=== PATIENT | male | born 1955 | race Caucasian/White ===

== ENCOUNTER 2019-06-17 05:33 | Observation (INO) | payer BC ==
[2019-06-17] MEDS ORDERED: Sodium Chloride 0.9% 1,000 ML IV ONE (05:42)
[2019-06-17] MEDS ORDERED: Ondansetron 4 MG/2 ML SDV IVPUSH ONE (05:42)
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
[2019-06-17] MEDS ORDERED: Alum Hydrox/Mag Hydrox/Simeth 15 ML, Metoclopramide 5 MG, Lidocaine 2% 5 ML PO ONE ×3 (06:02)
[2019-06-17] MEDS ORDERED: Iopamidol 755 Mg/ML 100 ML Bottle IVPUSH STA (06:04)
[2019-06-17 06:11] LABS: CARBON DIOXIDE,CO2 25.2 mmol/L (21.0-32.0); POTASSIUM,K 4.3 mmol/L (3.5-5.1)
--- NOTE | 2019-06-17 07:00 | CT ---
INDICATION: Abdominal pain TECHNIQUE: CT Abdomen and pelvis without i.v. contrast. Coronal and sagittal reformats were obtained. COMPARISON: None FINDINGS: Lower chest: Small nodular infiltrates are present in the medial left lower lobe where there is hyperlucency and a systemic feeding artery extending from the aorta. Liver: Unremarkable. Spleen: Unremarkable. Pancreas: Unremarkable. Gallbladder: Two calcified gallstones are present within the contracted gallbladder has mild gallbladder wall thickening. Kidney: Moderate atrophy of the right kidney is seen. There is a low-density lesion protruding into the left renal sinus in the lower pole measuring 1.4 cm. This is likely a parapelvic cyst but is incompletely assessed without intravenous contrast. Adrenal: There is a 2 cm left adrenal nodule present with average density of -4 HU. Bowel: Unremarkable. Moderate enlargement of the appendix is noted measuring 10 mm, with no secondary inflammatory changes seen. Vascular: Unremarkable. Lymph: Unremarkable. Peritoneum: Unremarkable. No pneumoperitoneum is seen. Trace pelvic ascites is present. Pelvis: Unremarkable. Soft tissue: Unremarkable. Bone: Unremarkable for age. IMPRESSIONS: 1. Small nodular infiltrates are present in the medial left lower lobe where there is hyperlucency and a systemic feeding artery extending from the aorta. 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 2. Two calcified gallstones are present within the contracted gallbladder that has mild gallbladder wall thickening. 3. Moderate enlargement of the appendix is noted measuring 10 mm, with no secondary inflammatory changes seen. Clinical correlation and followup recommended to distinguish between a normal ectatic variant or early stage appendicitis. 4. There is a 2 cm left adrenal nodule present with average density of -4 HU. This is likely a lipid rich adrenal adenoma. Correlation with patient`s history and laboratory data is recommended to determine the hormone activity level of this lesion. Dictated by Preston Suarez MD @ 06/17/2019 6:53:50 AM Please note that all CT scans at this facility use dose modulation, iterative reconstruction, and/or weight-based dosing when appropriate to reduce radiation dose to as low as reasonably achievable. Dictated by: Preston Suarez MD @ 06/17/2019 06:58:33 (Electronically Signed)
[2019-06-17] MEDS ORDERED: Piperacillin/Tazobactam 4.5 GM in Sodium Chloride 0.9% 100 ML IV ONE (07:24)
--- NOTE | 2019-06-17 09:21 | PCM.CONS ---
H&P History of Present Illness - General Date of Service: 06/17/19 Admit Problem/Dx: Admission Diagnosis/Problem Admission Diagnosis/Problem Abdominal pain Source of Information: Patient History Limitations: Reports: No Limitations - History of Present Illness Initial Comments - Free Text/Narative: Patient is a 63-year-old gentleman who presented to the emergency room earlier this morning complaining of significant abdominal pain. He is not able to localize the pain. He did describe it is primarily upper abdomen. No particular food intolerances. He has noted significant abdominal bloating intermittently for the last several weeks. He was given a trial of Prilosec which she does not think helped him. He denies any personal history of greasy food intolerance. He thinks his father had his gallbladder out. He is not sure if his mother had a cholecystectomy. He denies any change in the color of his stools or urine. His relates he has lost about 10 pounds in the last 6 -8 weeks as he is afraid to eat anything. Duration of Symptoms: Reports: Week(s):, Chronic, Colic, Recurring Location: Reports: Abdomen Quality: Reports: Pressure, Throbbing Severity: Moderate Improves with: Reports: None Worsens with: Reports: None Context: Reports: Sick Contact Associated Symptoms: Reports: Loss of Appetite. Denies: Confusion, Chest Pain, Cough, Fever/Chills, Headaches, Malaise, Nausea/Vomiting Abdomen Pain Score (Numeric/FACES): 8 - Related Data Allergies/Adverse Reactions: Allergies Allergy/AdvReac Type Severity Reaction Status Date / Time No Known Allergies Allergy Verified 06/17/19 05:44 Home Medications: Home Meds Aspirin 81 mg PO DAILY 06/17/19 [History] Lisinopril [Zestril] 10 mg PO DAILY 06/17/19 [History] Metoprolol Succinate 25 mg PO DAILY 06/17/19 [History] Omeprazole 40 mg PO DAILY 06/17/19 [History] atorvaSTATin [Lipitor] 40 mg PO DAILY 06/17/19 [History] Past Medical History HEENT History: Reports: Other (See Below) Other HEENT History: top and bottom dentures Cardiovascular History: Reports: High Cholesterol, Hypertension Respiratory History: Reports: None Gastrointestinal History: Reports: None Genitourinary History: Reports: None Musculoskeletal History: Reports: None Neurological History: Reports: None Psychiatric History: Reports: None Endocrine/Metabolic History: Reports: None Hematologic History: Reports: None Immunologic History: Reports: None Oncologic (Cancer) History: Reports: None Dermatologic History: Reports: None - Infectious Disease History Infectious Disease History: Reports: Chicken Pox - Past Surgical History Head Surgeries/Procedures: Reports: None Social & Family History - Tobacco Use Smoking Status *Q: Current Every Day Smoker Years of Tobacco use: 44 Packs/Tins Daily: 0.5 - Caffeine Use Caffeine Use: Reports: Soda - Recreational Drug Use Recreational Drug Use: No H&P Review of Systems - Review of Systems: Review Of Systems: See Below General: Reports: Decreased Appetite, Weight Loss. Denies: Fever, Chills, Malaise HEENT: Reports: No Symptoms Pulmonary: Denies: Shortness of Breath, Wheezing Cardiovascular: Reports: Blood Pressure Problem. Denies: Chest Pain, Palpitations, Dyspnea on Exertion, Lightheadedness, Syncope Gastrointestinal: Reports: Abdominal Pain, Decreased Appetite, Distension, Flatus. Denies: Black Stool, Bloody Stool, Constipation, Diarrhea, Difficulty Swallowing, Hematemesis, Hematochezia, Melena, Nausea, Stool Incontinence, Vomiting Genitourinary: Denies: Dysuria, Frequency, Burning, Pain, Urgency Musculoskeletal: Denies: Neck Pain, Shoulder Pain Psychiatric: Denies: Confusion, Depression, Mood Lability, Anxiety Neurological: Reports: No Symptoms Hematologic/Lymphatic: Reports: No Symptoms Immunologic: Reports: No Symptoms Exam - Exam Exam: See Below - Vital Signs Vital Signs: Last Vital Signs Temp 97.6 F 06/17/19 08:23 Pulse 84 06/17/19 08:23 Resp 18 06/17/19 08:23 BP 142/79 H 06/17/19 08:23 Pulse Ox 95 06/17/19 08:23 Weight: 182 lb 8.684 oz - Exam Quality Assessment: No: Supplemental Oxygen, Central Line/PICC, Urinary Catheter General: Alert, Oriented, Cooperative, Mild Distress HEENT: Conjunctiva Clear, Nares Patent, Normal Nasal Septum, Pupils Equal, Pupils Reactive. No: Scleral Icterus Neck: Supple, Trachea Midline, +2 Carotid Pulse wo Bruit, Full Range of Motion Lungs: Clear to Auscultation, Normal Respiratory Effort. No: Rales, Wheezing Cardiovascular: Regular Rate, Regular Rhythm, Normal S1, Normal S2. No: Bradycardia, Tachycardia, Systolic Murmur GI/Abdominal Exam: Normal Bowel Sounds, Soft, Non-Tender, No Organomegaly, No Distention, Other (Negative Lindquist's sign). No: Guarding, Rigid, Rebound (Male) Exam: No Hernia Rectal (Males) Exam: Deferred Extremities: Normal Range of Motion, No Pedal Edema, Normal Capillary Refill Peripheral Pulses: 4+: Posterior Tibial (L), Posterior Tibial (R), Dorsalis Pedis (L), Dorsalis Pedis (R) Skin: Warm, Dry, Intact Neurological: Cranial Nerves Intact, Normal Speech, Normal Tone Psychiatric: Alert, Normal Affect, Normal Mood. No: Anxious, Depressed - Patient Data Lab Results Last 24 hrs: Laboratory Results - last 24 hr 06/17/19 06/17/19 06/17/19 Range/Units 05:45 05:45 05:45 WBC 18.09 H (4.0-11.0) K/uL RBC 4.04 L (4.50-5.90) M/uL Hgb 12.6 L (13.0-17.0) g/dL Hct 34.8 L (38.0-50.0) % MCV 86.1 (80.0-98.0) fL MCH 31.2 (27.0-32.0) pg MCHC 36.2 (31.0-37.0) g/dL RDW Std Deviation 39.3 (28.0-62.0) fl RDW Coeff of Annie 12 (11.0-15.0) % Plt Count 290 (150-400) K/uL MPV 9.50 (7.40-12.00) fL Neut % (Auto) 82.8 H (48.0-80.0) % Lymph % (Auto) 9.1 L (16.0-40.0) % [place] % (Auto) 6.5 (0.0-15.0) % Eos % (Auto) 1.4 (0.0-7.0) % Baso % (Auto) 0.2 (0.0-1.5) % Neut # (Auto) 15.0 H (1.4-5.7) K/uL Lymph # (Auto) 1.7 (0.6-2.4) K/uL [place] # (Auto) 1.2 H (0.0-0.8) K/uL Eos # (Auto) 0.3 (0.0-0.7) K/uL Baso # (Auto) 0.0 (0.0-0.1) K/uL Nucleated RBC % 0.0 /100WBC Nucleated RBCs # 0 K/uL Lactate 1.4 (0.20-2.00) mmol/L Sodium 129 L (136-148) mmol/L Potassium 4.3 (3.5-5.1) mmol/L Chloride 92 L (98-107) mmol/L Carbon Dioxide 25.2 (21.0-32.0) mmol/L BUN 27 H (7.0-18.0) mg/dL Creatinine 2.0 H (0.8-1.3) mg/dL Est Cr Clr Drug Dosing 37.05 mL/min Estimated GFR (MDRD) 34.0 ml/min Glucose 128 H (74-106) mg/dL Calcium 9.7 (8.5-10.1) mg/dL Total Bilirubin 0.5 (0.2-1.0) mg/dL AST 23 (15-37) IU/L ALT 29 (14-63) IU/L Alkaline Phosphatase 99 (46-116) U/L Total Protein 7.6 (6.4-8.2) g/dL Albumin 4.3 (3.4-5.0) g/dL Globulin 3.3 (2.6-4.0) g/dL Albumin/Globulin Ratio 1.3 (0.9-1.6) Lipase 199 (73-393) U/L Urine Color Urine Appearance Urine pH (5.0-8.0) Ur Specific [place] (1.001-1.035) Urine Protein (NEGATIVE) mg/dL Urine Glucose (UA) (NEGATIVE) mg/dL Urine Ketones (NEGATIVE) mg/dL Urine Occult Blood (NEGATIVE) Urine Nitrite (NEGATIVE) Urine Bilirubin (NEGATIVE) Urine Urobilinogen (<2.0) EU/dL Ur Leukocyte Esterase (NEGATIVE) U Hyaline Cast (Auto) (0-2/LPF) Urine RBC (0-2/HPF) Urine WBC (0-5/HPF) Ur Squamous Epith Cells Urine Bacteria (NEGATIVE) Urine Mucus (NONE-MOD) 06/17/19 Range/Units 06:28 WBC (4.0-11.0) K/uL RBC (4.50-5.90) M/uL Hgb (13.0-17.0) g/dL Hct (38.0-50.0) % MCV (80.0-98.0) fL MCH (27.0-32.0) pg MCHC (31.0-37.0) g/dL RDW Std Deviation (28.0-62.0) fl RDW Coeff of Annie (11.0-15.0) % Plt Count (150-400) K/uL MPV (7.40-12.00) fL Neut % (Auto) (48.0-80.0) % Lymph % (Auto) (16.0-40.0) % [place] % (Auto) (0.0-15.0) % Eos % (Auto) (0.0-7.0) % Baso % (Auto) (0.0-1.5) % Neut # (Auto) (1.4-5.7) K/uL Lymph # (Auto) (0.6-2.4) K/uL [place] # (Auto) (0.0-0.8) K/uL Eos # (Auto) (0.0-0.7) K/uL Baso # (Auto) (0.0-0.1) K/uL Nucleated RBC % /100WBC Nucleated RBCs # K/uL Lactate (0.20-2.00) mmol/L Sodium (136-148) mmol/L Potassium (3.5-5.1) mmol/L Chloride (98-107) mmol/L Carbon Dioxide (21.0-32.0) mmol/L BUN (7.0-18.0) mg/dL Creatinine (0.8-1.3) mg/dL Est Cr Clr Drug Dosing mL/min Estimated GFR (MDRD) ml/min Glucose (74-106) mg/dL Calcium (8.5-10.1) mg/dL Total Bilirubin (0.2-1.0) mg/dL AST (15-37) IU/L ALT (14-63) IU/L Alkaline Phosphatase (46-116) U/L Total Protein (6.4-8.2) g/dL Albumin (3.4-5.0) g/dL Globulin (2.6-4.0) g/dL Albumin/Globulin Ratio (0.9-1.6) Lipase (73-393) U/L Urine Color YELLOW Urine Appearance CLEAR Urine pH 7.0 (5.0-8.0) Ur Specific [place] 1.010 (1.001-1.035) Urine Protein NEGATIVE (NEGATIVE) mg/dL Urine Glucose (UA) NEGATIVE (NEGATIVE) mg/dL Urine Ketones TRACE H (NEGATIVE) mg/dL Urine Occult Blood NEGATIVE (NEGATIVE) Urine Nitrite NEGATIVE (NEGATIVE) Urine Bilirubin NEGATIVE (NEGATIVE) Urine Urobilinogen 1.0 (<2.0) EU/dL Ur Leukocyte Esterase NEGATIVE (NEGATIVE) U Hyaline Cast (Auto) 0-1 (0-2/LPF) Urine RBC NONE SEEN (0-2/HPF) Urine WBC 0-1 (0-5/HPF) Ur Squamous Epith Cells RARE Urine Bacteria NOT SEEN (NEGATIVE) Urine Mucus OCCASIONAL (NONE-MOD) Result Diagrams: 06/17/19 05:45 06/17/19 05:45 Sepsis Event Note - Evaluation Sepsis Screening Result: No Definite Risk - Focused Exam Vital Signs: Vital Signs Temp Pulse Resp BP Pulse Ox 06/17/19 08:23 97.6 F 84 18 142/79 H 95 06/17/19 06:51 97.6 F 82 20 144/70 H 96 06/17/19 05:41 97.0 F 74 22 H 103/50 L 98 Date Exam was Performed: 06/17/19 Time Exam was Performed: 09:16 Consult PN Assessment/Plan (1) Biliary colic SNOMED Code(s): 81927551 Code(s): K80.50 - CALCULUS OF BILE DUCT W/O CHOLANGITIS OR CHOLECYST W/O OBST Priority: High Current Visit: Yes (2) Cholelithiasis and cholecystitis without obstruction SNOMED Code(s): 58811607 Code(s): K80.10 - CALCULUS OF GALLBLADDER W CHRONIC CHOLECYST W/O OBSTRUCTION Priority: High Current Visit: Yes Qualifiers: Cholelithiasis location: gallbladder Cholecystitis acuity: chronic Qualified Code(s): K80.10 - Calculus of gallbladder with chronic cholecystitis without obstruction (3) Acute kidney injury (nontraumatic) SNOMED Code(s): 973184759096337 Code(s): N17.9 - ACUTE KIDNEY FAILURE, UNSPECIFIED Priority: Medium Current Visit: Yes Problem List Initiated/Reviewed/Updated: Yes My Orders Last 24 Hours: My Active Orders 06/17/19 09:15 Sodium Chloride 0.9% [Normal Saline] 1,000 ml IV ASDIRECTED Plan: Patient does appear mildly dehydrated, probably explaining his elevated BUN/ creatinine. His white count may be slightly elevated on the basis of dehydration as well. Reviewing his radiologic studies I certainly think he has a mild to moderate chronic cholecystitis. Gallstones are easily visualized with one appearing to be in the neck of the gallbladder. This may be accounting for his intermittent symptoms. Given the chronicity of his symptoms , I think he would benefit from IV fluid resuscitation and antibiotics. I would recheck his labs in the morning. At the present time, it does look like he could have an elective outpatient cholecystectomy. For today, I would let him have clear liquids to full liquids and then make him nothing by mouth after midnight. Would repeat his lab work in the morning. I think it reasonable to consider an ultrasound of the right upper quadrant as well. I do not think he has an acute appendicitis or acute cholecystitis.
--- NOTE | 2019-06-17 09:31 | PCM.HP.2 ---
H&P History of Present Illness - General Date of Service: 06/17/19 Admit Problem/Dx: Admission Diagnosis/Problem Admission Diagnosis/Problem Abdominal pain - History of Present Illness Initial Comments - Free Text/Narative: 63 yo male with pmh of hypertension who over the past several months has had upper abdominal pain right more so than left. The pain is intermittent and can last about a half a day at a time. He reports his pain was more severe this morning so he presented to the ED. He denies any fevers, chills abdominal pain or nausea. He doctors in [place] and was recently placed on omeprazole due to his abdominal pain. HE reports he was recently taken of a medication due to concerns over kidney issues. In the ED he was noted to have a leukocytosis of 18,090. His CT scan of the abdomen reported two calcified gallstones within a contracted gallbladder with mildly thickened gallbladder. moderate enlargement of the appendix, and 2cm adrenal nodule. Dr. Lea was consulted in the ED and recommended admission to medicine. Abdomen Pain Score (Numeric/FACES): 8 - Related Data Allergies/Adverse Reactions: Allergies Allergy/AdvReac Type Severity Reaction Status Date / Time No Known Allergies Allergy Verified 06/17/19 09:45 Home Medications: Home Meds Aspirin 81 mg PO DAILY 06/17/19 [History] Lisinopril [Zestril] 10 mg PO BID 06/17/19 [History] Metoprolol Succinate 25 mg PO DAILY 06/17/19 [History] Omeprazole 40 mg PO DAILY 06/17/19 [History] atorvaSTATin [Lipitor] 40 mg PO DAILY 06/17/19 [History] Ciprofloxacin [Ciprofloxacin HCl] 500 mg PO BID #20 tab 06/18/19 [Rx] metroNIDAZOLE [Flagyl] 500 mg PO Q8H #30 tab 06/18/19 [Rx] Past Medical History HEENT History: Reports: Other (See Below) Other HEENT History: top and bottom dentures Cardiovascular History: Reports: High Cholesterol, Hypertension Respiratory History: Reports: None Gastrointestinal History: Reports: None Genitourinary History: Reports: None Musculoskeletal History: Reports: None Neurological History: Reports: None Psychiatric History: Reports: None Endocrine/Metabolic History: Reports: None Hematologic History: Reports: None Immunologic History: Reports: None Oncologic (Cancer) History: Reports: None Dermatologic History: Reports: None - Infectious Disease History Infectious Disease History: Reports: Chicken Pox - Past Surgical History Head Surgeries/Procedures: Reports: None Social & Family History - Tobacco Use Smoking Status *Q: Current Every Day Smoker Years of Tobacco use: 44 Packs/Tins Daily: 0.5 - Caffeine Use Caffeine Use: Reports: Soda - Recreational Drug Use Recreational Drug Use: No H&P Review of Systems - Review of Systems: Review Of Systems: Comprehensive ROS is negative, except as noted in HPI. Exam - Exam Exam: See Below - Vital Signs Vital Signs: Last Vital Signs Temp 36.4 C 06/17/19 08:23 Pulse 84 06/17/19 08:23 Resp 18 06/17/19 08:23 BP 142/79 H 06/17/19 08:23 Pulse Ox 95 06/17/19 08:23 Weight: 82.8 kg - Exam General: Alert, Oriented HEENT: Mucosa Moist & [place] Lungs: Clear to Auscultation, Normal Respiratory Effort Cardiovascular: Regular Rate, Regular Rhythm GI/Abdominal Exam: Normal Bowel Sounds, Soft, Non-Tender, No Organomegaly, No Distention, No Mass Extremities: Non-Tender, No Pedal Edema Skin: Warm, Dry, Intact - Patient Data Lab Results Last 24 hrs: Laboratory Results - last 24 hr 06/17/19 06/17/19 06/17/19 Range/Units 05:45 05:45 05:45 WBC 18.09 H (4.0-11.0) K/uL RBC 4.04 L (4.50-5.90) M/uL Hgb 12.6 L (13.0-17.0) g/dL Hct 34.8 L (38.0-50.0) % MCV 86.1 (80.0-98.0) fL MCH 31.2 (27.0-32.0) pg MCHC 36.2 (31.0-37.0) g/dL RDW Std Deviation 39.3 (28.0-62.0) fl RDW Coeff of Annie 12 (11.0-15.0) % Plt Count 290 (150-400) K/uL MPV 9.50 (7.40-12.00) fL Neut % (Auto) 82.8 H (48.0-80.0) % Lymph % (Auto) 9.1 L (16.0-40.0) % Dawson % (Auto) 6.5 (0.0-15.0) % Eos % (Auto) 1.4 (0.0-7.0) % Baso % (Auto) 0.2 (0.0-1.5) % Neut # (Auto) 15.0 H (1.4-5.7) K/uL Lymph # (Auto) 1.7 (0.6-2.4) K/uL Dawson # (Auto) 1.2 H (0.0-0.8) K/uL Eos # (Auto) 0.3 (0.0-0.7) K/uL Baso # (Auto) 0.0 (0.0-0.1) K/uL Nucleated RBC % 0.0 /100WBC Nucleated RBCs # 0 K/uL Lactate 1.4 (0.20-2.00) mmol/L Sodium 129 L (136-148) mmol/L Potassium 4.3 (3.5-5.1) mmol/L Chloride 92 L (98-107) mmol/L Carbon Dioxide 25.2 (21.0-32.0) mmol/L BUN 27 H (7.0-18.0) mg/dL Creatinine 2.0 H (0.8-1.3) mg/dL Est Cr Clr Drug Dosing 37.05 mL/min Estimated GFR (MDRD) 34.0 ml/min Glucose 128 H (74-106) mg/dL Calcium 9.7 (8.5-10.1) mg/dL Total Bilirubin 0.5 (0.2-1.0) mg/dL AST 23 (15-37) IU/L ALT 29 (14-63) IU/L Alkaline Phosphatase 99 (46-116) U/L Total Protein 7.6 (6.4-8.2) g/dL Albumin 4.3 (3.4-5.0) g/dL Globulin 3.3 (2.6-4.0) g/dL Albumin/Globulin Ratio 1.3 (0.9-1.6) Lipase 199 (73-393) U/L Urine Color Urine Appearance Urine pH (5.0-8.0) Ur Specific [place] (1.001-1.035) Urine Protein (NEGATIVE) mg/dL Urine Glucose (UA) (NEGATIVE) mg/dL Urine Ketones (NEGATIVE) mg/dL Urine Occult Blood (NEGATIVE) Urine Nitrite (NEGATIVE) Urine Bilirubin (NEGATIVE) Urine Urobilinogen (<2.0) EU/dL Ur Leukocyte Esterase (NEGATIVE) U Hyaline Cast (Auto) (0-2/LPF) Urine RBC (0-2/HPF) Urine WBC (0-5/HPF) Ur Squamous Epith Cells Urine Bacteria (NEGATIVE) Urine Mucus (NONE-MOD) 06/17/19 Range/Units 06:28 WBC (4.0-11.0) K/uL RBC (4.50-5.90) M/uL Hgb (13.0-17.0) g/dL Hct (38.0-50.0) % MCV (80.0-98.0) fL MCH (27.0-32.0) pg MCHC (31.0-37.0) g/dL RDW Std Deviation (28.0-62.0) fl RDW Coeff of Annie (11.0-15.0) % Plt Count (150-400) K/uL MPV (7.40-12.00) fL Neut % (Auto) (48.0-80.0) % Lymph % (Auto) (16.0-40.0) % Dawson % (Auto) (0.0-15.0) % Eos % (Auto) (0.0-7.0) % Baso % (Auto) (0.0-1.5) % Neut # (Auto) (1.4-5.7) K/uL Lymph # (Auto) (0.6-2.4) K/uL Dawson # (Auto) (0.0-0.8) K/uL Eos # (Auto) (0.0-0.7) K/uL Baso # (Auto) (0.0-0.1) K/uL Nucleated RBC % /100WBC Nucleated RBCs # K/uL Lactate (0.20-2.00) mmol/L Sodium (136-148) mmol/L Potassium (3.5-5.1) mmol/L Chloride (98-107) mmol/L Carbon Dioxide (21.0-32.0) mmol/L BUN (7.0-18.0) mg/dL Creatinine (0.8-1.3) mg/dL Est Cr Clr Drug Dosing mL/min Estimated GFR (MDRD) ml/min Glucose (74-106) mg/dL Calcium (8.5-10.1) mg/dL Total Bilirubin (0.2-1.0) mg/dL AST (15-37) IU/L ALT (14-63) IU/L Alkaline Phosphatase (46-116) U/L Total Protein (6.4-8.2) g/dL Albumin (3.4-5.0) g/dL Globulin (2.6-4.0) g/dL Albumin/Globulin Ratio (0.9-1.6) Lipase (73-393) U/L Urine Color YELLOW Urine Appearance CLEAR Urine pH 7.0 (5.0-8.0) Ur Specific [place] 1.010 (1.001-1.035) Urine Protein NEGATIVE (NEGATIVE) mg/dL Urine Glucose (UA) NEGATIVE (NEGATIVE) mg/dL Urine Ketones TRACE H (NEGATIVE) mg/dL Urine Occult Blood NEGATIVE (NEGATIVE) Urine Nitrite NEGATIVE (NEGATIVE) Urine Bilirubin NEGATIVE (NEGATIVE) Urine Urobilinogen 1.0 (<2.0) EU/dL Ur Leukocyte Esterase NEGATIVE (NEGATIVE) U Hyaline Cast (Auto) 0-1 (0-2/LPF) Urine RBC NONE SEEN (0-2/HPF) Urine WBC 0-1 (0-5/HPF) Ur Squamous Epith Cells RARE Urine Bacteria NOT SEEN (NEGATIVE) Urine Mucus OCCASIONAL (NONE-MOD) Result Diagrams: 06/18/19 05:50 06/18/19 12:25 Sepsis Event Note - Evaluation Sepsis Screening Result: No Definite Risk - Focused Exam Vital Signs: Vital Signs Temp Pulse Resp BP Pulse Ox 06/17/19 08:23 36.4 C 84 18 142/79 H 95 06/17/19 06:51 36.4 C 82 20 144/70 H 96 06/17/19 05:41 36.1 C 74 22 H 103/50 L 98 Date Exam was Performed: 06/21/19 Time Exam was Performed: 10:17 Problem List Initiated/Reviewed/Updated: Yes Orders Last 24hrs: Active Orders 24 hr Category Date Time Status Admission Status [Patient Status] [ADT] Stat ADT 06/17/19 07:42 Active Notify Provider Consults [RC] ASDIRECTED Care 06/17/19 09:04 Active Consult to Physician [CONS] Routine Cons 06/17/19 09:03 Active CULTURE BLOOD [BC] Stat Lab 06/17/19 06:37 Received CULTURE BLOOD [BC] Stat Lab 06/17/19 06:53 Received Sodium Chloride 0.9% [Normal Saline] 1,000 ml Med 06/17/19 09:15 Active IV ASDIRECTED Blood Culture x2 Reflex Set [OM.PC] Stat Oth 06/17/19 06:26 Ordered Medication Orders Sodium Chloride (Normal Saline) 1,000 mls @ 125 mls/hr IV ASDIRECTED GAYATHRI Assessment/Plan Comment:: 63 yo male admitted for acute cholecystitis. We will treat with Zosyn. We will check abdominal ultrasound in the morning. Dr. Lea has been consulted. Patient likely has chronic kidney disease. We will request his medical records from [facility].
[2019-06-17] MEDS ORDERED: Morphine 2 MG/ML SYRINGE IVPUSH PRN (09:34)
[2019-06-17] MEDS ORDERED: Ondansetron 4 MG/2 ML SDV IVPUSH PRN (09:34)
[2019-06-17] MEDS: Sodium Chloride 0.9% 1,000 ML IV SCH (09:51)
[2019-06-17] MEDS ORDERED: Lisinopril 10 MG Tab PO SCH (11:45)
[2019-06-17] MEDS: Nicotine 14 MG/24 Hr Patch TRDERM SCH (11:57)
[2019-06-17] MEDS: Metoprolol Succinate 25 MG Tab.ER PO SCH (13:39)
[2019-06-17] MEDS: Omeprazole 20 MG Cap.CR PO SCH (13:41)
[2019-06-17] MEDS: Piperacillin/Tazobactam 3.375 GM in Sodium Chloride 0.9% 50 ML IV SCH ×2 (15:17→22:05)
--- NOTE | 2019-06-17 19:00 | US ---
Limited abdominal ultrasound: Multiple real-time images of the upper right abdomen were obtained. Comparison: Prior abdominal and pelvic CT study performed earlier on the same day (6:25 AM). Liver shows no focal parenchymal abnormality. Gallbladder shows gallbladder wall thickening with shadowing areas within the gallbladder lumen presumably representing gallstones. No biliary duct dilatation is appreciated. Right kidney shows 2 small exophytic cortical cysts. Right kidney is slightly small at 8.0 cm. Pancreas is obscured from bowel gas. Impression: 1. Gallbladder wall thickening with shadowing gallstones. No biliary duct dilatation is seen. Uncertain if findings are due to chronic or acute cholecystitis. Biliary HIDA scan with ejection fraction would be helpful to further evaluate. 2. Obscured pancreas due to bowel gas. 3. 2 small exophytic cortical cyst within the right kidney. Right kidney is also slightly small at 8.0 cm in length. 4. Other nonacute findings as noted above. Diagnostic code #3 This report was dictated in [place] Standard Time
[2019-06-18] MEDS: Piperacillin/Tazobactam 3.375 GM in Sodium Chloride 0.9% 50 ML IV SCH ×2 (02:59→08:18)
[2019-06-18] MEDS: Sodium Chloride 0.9% 1,000 ML IV SCH (02:59)
[2019-06-18 06:25] LABS: CARBON DIOXIDE,CO2 26.3 mmol/L (21.0-32.0); POTASSIUM,K 5.7 mmol/L (3.5-5.1)
[2019-06-18] MEDS: Metoprolol Succinate 25 MG Tab.ER PO SCH (08:16)
[2019-06-18] MEDS: Omeprazole 20 MG Cap.CR PO SCH (08:17)
[2019-06-18] MEDS: Nicotine 14 MG/24 Hr Patch TRDERM SCH (08:18)
--- NOTE | 2019-06-18 13:44 | PCM.DCSUM1 ---
Discharge Summary - Hospital Course Brief History: 63 yo male with pmh of hypertension who over the past several months has had upper abdominal pain right more so than left. The pain is intermittent and can last about a half a day at a time. He reports his pain was more severe this morning so he presented to the ED. He denies any fevers, chills abdominal pain or nausea. He doctors in [place] and was recently placed on omeprazole due to his abdominal pain. HE reports he was recently taken of a medication due to concerns over kidney issues. In the ED he was noted to have a leukocytosis of 18,090. His CT scan of the abdomen reported two calcified gallstones within a contracted gallbladder with mildly thickened gallbladder. moderate enlargement of the appendix, and 2cm adrenal nodule. Dr. Lea was consulted in the ED and recommended admission to medicine. Diagnosis: Stroke: No - Discharge Data Discharge Date: 06/18/19 Discharge Disposition: Home, Self-Care 01 Condition: Stable - Referral to Home Health Primary Care Physician: Leti Pedro NP - Patient Summary/Data Consults: Consultations 06/17/19 09:03 Consult to Physician [CONS] Routine - Patient Instructions Diet: GI Soft/Low Residue/Low Fiber (Low fat) Activity: As Tolerated, No Strenuous Activities Driving: May Drive Today Showering/Bathing: May Shower Notify Provider of: Fever, Increased Pain, Swelling and Redness, Drainage, Nausea and/or Vomiting - Discharge Plan *PRESCRIPTION DRUG MONITORING PROGRAM REVIEWED*: Not Applicable *COPY OF PRESCRIPTION DRUG MONITORING REPORT IN PATIENT JAMARI: Not Applicable Prescriptions/Med Rec: Ciprofloxacin [Ciprofloxacin HCl] 500 mg PO BID #20 tab metroNIDAZOLE [Flagyl] 500 mg PO Q8H #30 tab Home Medications: Home Meds Aspirin 81 mg PO DAILY 06/17/19 [History] Lisinopril [Zestril] 10 mg PO BID 06/17/19 [History] Metoprolol Succinate 25 mg PO DAILY 06/17/19 [History] Omeprazole 40 mg PO DAILY 06/17/19 [History] atorvaSTATin [Lipitor] 40 mg PO DAILY 06/17/19 [History] Ciprofloxacin [Ciprofloxacin HCl] 500 mg PO BID #20 tab 06/18/19 [Rx] metroNIDAZOLE [Flagyl] 500 mg PO Q8H #30 tab 06/18/19 [Rx] Oxygen Therapy Mode: Room Air Patient Handouts: Cholelithiasis, [id number] Referrals: Jose Francisco Lea MD [Physician] - 06/27/19 10:15 am Abner Martin MD [Physician] - 06/28/19 2:45 pm - Discharge Summary/Plan Comment DC Time >30 min.: No Discharge Summary/Plan Comment: Admitting Diagnoses: Cholecystitis Discharge Diagnoses: Cholecystitis Other PMH: HTN Tobacco dependence Edmundo was admitted secondary to abdominal pain and found to have cholecystitis and questionable enlarged appendix. He was started on empiric antibiotics with Zosyn and Dr Lea was consulted. No appendicitis was noted, likely more chronic cholecystitis with cholelithiasis. Abdominal US also obtained which revealed thicken gall bladder with with shadowing stones. No biliary duct dilation. Diet was advanced to Low fat this morning, which he tolerated well with no pain. Leukocytosis improved with antibiotics and fluids. May be component of dehydration, JONI improved as well. He may have slight component of CKD. VS remianed stable. Potassium 5.5 today after repeat. Follow up with Dr Lea is scheduled for outpatient cholecystectomy. Patient and family [facility] Dr Martin, since their entire family sees him. Outpatient appointment arranged in [address] Martin. He and were counseled on low fat diet. They were also counseled on symptoms to monitor of such as fevers, chills, worsening abdominal pain and N/V. He is to return to ED or clinic if concerns should arise. On CT of abdomen pelvis, 2 cm left adrenal adenoma noted, patient and given this information. PCP will be able to follow and monitor this. - General Info Date of Service: 06/18/19 Admission Dx/Problem (Free Text: Admission Diagnosis/Problem Admission Diagnosis/Problem Abdominal pain Subjective Update: Feeling well this morning, no pain. Eager for discharge home. - Review of Systems General: Reports: No Symptoms. Denies: Fever Pulmonary: Reports: No Symptoms. Denies: Shortness of Breath Cardiovascular: Reports: No Symptoms. Denies: Chest Pain Gastrointestinal: Reports: No Symptoms. Denies: Abdominal Pain, Nausea, Vomiting Genitourinary: Reports: No Symptoms. Denies: Dysuria, Frequency Neurological: Reports: No Symptoms Psychiatric: Reports: No Symptoms - Patient Data Vitals - Most Recent: Last Vital Signs Temp 97.4 F 06/18/19 12:00 Pulse 75 06/18/19 12:00 Resp 16 06/18/19 12:00 BP 127/60 06/18/19 12:00 Pulse Ox 97 06/18/19 12:00 Weight - Most Recent: 81.556 kg I&O - Last 24 hours: Intake & Output 06/17/19 06/18/19 06/18/19 22:59 06:59 14:59 Intake Total 1950 1700 1050 Output Total 500 1400 Balance 1000 832 8520 Lab Results - Last 24 hrs: Laboratory Results - last 24 hr 06/18/19 06/18/19 06/18/19 Range/Units 05:50 05:50 12:25 WBC 6.99 (4.0-11.0) K/uL RBC 3.34 L (4.50-5.90) M/uL Hgb 10.6 L (13.0-17.0) g/dL Hct 29.7 L (38.0-50.0) % MCV 88.9 (80.0-98.0) fL MCH 31.7 (27.0-32.0) pg MCHC 35.7 (31.0-37.0) g/dL RDW Std Deviation 38.2 (28.0-62.0) fl RDW Coeff of Annie 12 (11.0-15.0) % Plt Count 234 (150-400) K/uL MPV 9.30 (7.40-12.00) fL Neut % (Auto) 58.7 (48.0-80.0) % Lymph % (Auto) 26.8 (16.0-40.0) % [place] % (Auto) 9.9 (0.0-15.0) % Eos % (Auto) 4.3 (0.0-7.0) % Baso % (Auto) 0.3 (0.0-1.5) % Neut # (Auto) 4.1 (1.4-5.7) K/uL Lymph # (Auto) 1.9 (0.6-2.4) K/uL [place] # (Auto) 0.7 (0.0-0.8) K/uL Eos # (Auto) 0.3 (0.0-0.7) K/uL Baso # (Auto) 0.0 (0.0-0.1) K/uL Sodium 137 (136-148) mmol/L Potassium 5.7 H 5.5 H (3.5-5.1) mmol/L Chloride 103 (98-107) mmol/L Carbon Dioxide 26.3 (21.0-32.0) mmol/L BUN 18 (7.0-18.0) mg/dL Creatinine 1.8 H (0.8-1.3) mg/dL Est Cr Clr Drug Dosing 41.17 mL/min Estimated GFR (MDRD) 38.4 ml/min Glucose 88 (74-106) mg/dL Calcium 8.7 (8.5-10.1) mg/dL Total Bilirubin 0.5 (0.2-1.0) mg/dL AST 20 (15-37) IU/L ALT 21 (14-63) IU/L Alkaline Phosphatase 70 (46-116) U/L Total Protein 5.9 L (6.4-8.2) g/dL Albumin 3.1 L (3.4-5.0) g/dL Globulin 2.8 (2.6-4.0) g/dL Albumin/Globulin Ratio 1.1 (0.9-1.6) PRADEEP Results - Last 24 hrs: Microbiology 06/17/19 06:53 Aerobic Blood Culture - Preliminary Blood - Venous - Lab Draw NO GROWTH AFTER 1 DAY Anaerobic Blood Culture - Preliminary NO GROWTH AFTER 1 DAY 06/17/19 06:37 Aerobic Blood Culture - Preliminary Blood - Venous NO GROWTH AFTER 1 DAY Anaerobic Blood Culture - Preliminary NO GROWTH AFTER 1 DAY Med Orders - Current: Current Medications Piperacillin Sod/Tazobactam (Sod 3.375 gm/ Sodium Chloride) 50 mls @ 100 mls/ hr IV Q6H [facility] Last Admin: 06/18/19 08:18 Dose: 100 mls/hr Metoprolol Succinate (Toprol Xl) 25 mg PO DAILY [facility] Last Admin: 06/18/19 08:16 Dose: 25 mg Nicotine (Habitrol) 14 mg TRDERM DAILY [facility] Last Admin: 06/18/19 08:18 Dose: 14 mg Omeprazole (Omeprazole) 40 mg PO ACBREAKFAST [facility] Last Admin: 06/18/19 08:17 Dose: 40 mg Ondansetron HCl (Zofran) 4 mg IVPUSH Q4H PRN PRN Reason: Nausea Discontinued Medications Al Hydroxide/Mg Hydroxide 15 ml/ Metoclopramide HCl 5 mg/Lidocaine HCl 5 ml 0 ml PO ONETIME ONE Stop: 06/17/19 06:03 Last Admin: 06/17/19 06:13 Dose: 1 each Sodium Chloride (Normal Saline) 1,000 mls @ 999 mls/hr IV BOLUS ONE Stop: 06/17/19 06:42 Last Admin: 06/17/19 06:10 Dose: 999 mls/hr Piperacillin Sod/Tazobactam (Sod 4.5 gm/ Sodium Chloride) 100 mls @ 100 mls/hr IV ONETIME ONE Stop: 06/17/19 08:23 Last Admin: 06/17/19 08:19 Dose: 100 mls/hr Sodium Chloride (Normal Saline) 1,000 mls @ 125 mls/hr IV ASDIRECTED GAYATHRI Last Admin: 06/18/19 02:59 Dose: 125 mls/hr Iopamidol (Isovue-370 (76%)) 100 ml IVPUSH ONETIME STA Stop: 06/17/19 06:05 Last Admin: 06/17/19 08:48 Dose: Not Given Lisinopril (Prinivil) 10 mg PO BID [facility] Morphine Sulfate (Morphine) 2 mg IVPUSH Q3H PRN PRN Reason: Pain (severe 7-10) Stop: 06/18/19 09:34 Ondansetron HCl (Zofran) 4 mg IVPUSH ONETIME ONE Stop: 06/17/19 05:43 Last Admin: 06/17/19 06:13 Dose: Not Given - Exam General: Reports: Alert, Oriented Lungs: Reports: Clear to Auscultation, Normal Respiratory Effort Cardiovascular: Reports: Regular Rate, Regular Rhythm GI/Abdominal Exam: Normal Bowel Sounds, Soft, Non-Tender, No Distention, No Mass Extremities: Normal Inspection, Normal Range of Motion Neurological: Reports: No New Focal Deficit Psy/Mental Status: Reports: Alert, Normal Affect, Normal Mood
== END 2019-06-18 15:05 | disposition home or self-care (01) ==
LOC: MW.ED 05:33 → MW.MS 07:42 → INTOOBSV 07:42 → MW.MS 09:20
PROVIDERS: ADMIT Internal Medicine; ATTEND Internal Medicine
DX: K80.10 Calculus of gallbladder with chronic cholecystitis without obstruction (principal); K38.8 Other specified diseases of appendix; D35.02 Benign neoplasm of left adrenal gland; N17.9 Acute kidney failure, unspecified; E86.0 Dehydration; I10 Essential (primary) hypertension; E78.00 Pure hypercholesterolemia, unspecified; K21.9 Gastro-esophageal reflux disease without esophagitis; F17.200 Nicotine dependence, unspecified, uncomplicated; Z79.82 Long term (current) use of aspirin; Z79.899 Other long term (current) drug therapy
CPT/HCPCS: 36415; 74176; 76705; 80053; 81001; 83605; 83690; 84132; 85025; 87040; 93005; 96361; 96365; 96376; 99285; A9270; G0378; J2543; J7030; J7050; 99283

== ENCOUNTER 2019-07-16 09:19 | Day surgery (SDC) | payer BC ==
[~2019-07-16 09:19] MED LIST: Lactated Ringers 1,000 ML IV SCH
[2019-07-16] MEDS ORDERED: Scopolamine 1.5 MG Transdermal Patch TRDERM PRN (10:41)
--- NOTE | 2019-07-16 10:47 | PCM.PREANE ---
Preanesthetic Assessment - Anesthesia/Transfusion/Family Hx Anesthesia History: Prior Anesthesia Without Reaction Family History of Anesthesia Reaction: No Transfusion History: No Prior Transfusion(s) Intubation History: Unknown - Review of Systems General: No Symptoms Pulmonary: No Symptoms Cardiovascular: No Symptoms Gastrointestinal: Abdominal Pain Neurological: No Symptoms Other: Reports: None - Physical Assessment Height: 5 ft 8 in Weight: 81.193 kg ASA Class: 2 Mental Status: Alert & Oriented x3 Airway Class: Mallampati = 2 Dentition: Reports: Dentures (upper and lower (removed)) Thyro-Mental Finger Breadths: 3 Mouth Opening Finger Breadths: 3 ROM/Head Extension: Full Lungs: Clear to Auscultation, Normal Respiratory Effort Cardiovascular: Regular Rate, Regular Rhythm - Allergies Allergies/Adverse Reactions: Allergies Allergy/AdvReac Type Severity Reaction Status Date / Time No Known Allergies Allergy Verified 07/12/19 10:05 - Blood Blood Available: No - Anesthesia Plan Pre-Op Medication Ordered: None - Acknowledgements Anesthesia Type Planned: General Anesthesia Pt an Appropriate Candidate for the Planned Anesthesia: Yes Alternatives and Risks of Anesthesia Discussed w Pt/Guardian: Yes Pt/Guardian Understands and Agrees with Anesthesia Plan: Yes PreAnesthesia Questionnaire HEENT History: Reports: Other (See Below) Other HEENT History: wears glasses, has upper and lower dentures Cardiovascular History: Reports: High Cholesterol (given atorvastatin to keep cholesterol low due to vascular disease), Hypertension, Other (See Below) Other Cardiovascular History: 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 ( says "something in his neck they are watching" ?) Respiratory History: Reports: None Gastrointestinal History: Reports: GERD, Other (See Below) (h/o cholecystitis) Genitourinary History: Reports: None Musculoskeletal History: Reports: None Neurological History: Reports: None Psychiatric History: Reports: None Endocrine/Metabolic History: Reports: None Hematologic History: Reports: None Immunologic History: Reports: None Oncologic (Cancer) History: Reports: None Dermatologic History: Reports: None - Infectious Disease History Infectious Disease History: Reports: Chicken Pox - Past Surgical History Head Surgeries/Procedures: Reports: None GI Surgical History: Reports: Colonoscopy Male Surgical History: Reports: None - SUBSTANCE USE Smoking Status *Q: Current Every Day Smoker (1/2 ppd) Tobacco Use Within Last Twelve Months: Cigarettes Recreational Drug Use History: No - HOME MEDS Home Medications: Home Meds Aspirin 81 mg PO DAILY 06/17/19 [History] Lisinopril [Zestril] 10 mg PO BID 06/17/19 [History] Metoprolol Succinate 25 mg PO QAM 06/17/19 [History] Omeprazole 40 mg PO DAILY 06/17/19 [History] atorvaSTATin [Lipitor] 40 mg PO DAILY 06/17/19 [History] amLODIPine [Norvasc] 5 mg PO BEDTIME 07/12/19 [History] - CURRENT (IN HOUSE) MEDS Current Meds: Current Medications Lactated Ringer's (Ringers, Lactated) 1,000 mls @ 125 mls/hr IV ASDIRECTED GAYATHRI
[2019-07-16] MEDS ORDERED: Bupivacaine 0.5% 30 ML SDV ONE (11:01)
[2019-07-16] MEDS ORDERED: ceFAZolin 1 GM Vial ONE (11:01)
[2019-07-16] MEDS ORDERED: Lidocaine 2% 5 ML SDV ONE (11:28)
[2019-07-16] MEDS ORDERED: fentaNYL 100 MCG/2 ML SDV ONE ×2 (11:29→14:02)
[2019-07-16] MEDS ORDERED: Midazolam 1 MG/ML 2 ML SDV ONE (11:29)
[2019-07-16] MEDS ORDERED: Propofol 200 MG/20 ML SDV ONE (11:29)
[2019-07-16] MEDS ORDERED: Sodium Chloride 0.9% 20 ML ONE (11:37)
[2019-07-16] MEDS ORDERED: Rocuronium 100 MG/10 ML Syringe ONE (13:07)
[2019-07-16] MEDS ORDERED: Ondansetron 4 MG/2 ML SDV ONE ×2 (13:46→13:49)
[2019-07-16] MEDS ORDERED: Sugammadex Sodium 200 MG/2 ML VIAL ONE (13:47)
[2019-07-16] MEDS ORDERED: Ketorolac 30 MG/ML SDV ONE (13:50)
[2019-07-16] MEDS ORDERED: Morphine 10 MG/ML Syringe IVPUSH PRN (14:05)
[2019-07-16] MEDS ORDERED: Acetaminophen/HYDROcodone 325-5 MG Tab PO PRN (14:05)
--- NOTE | 2019-07-16 14:09 | PCM.OPNOTE ---
- General Post-Op/Procedure Note Date of Surgery/Procedure: 07/16/19 Operative Procedure(s): Laparoscopic cholecystectomy Pre Op Diagnosis: Cholelithiasis with cholecystitis Post-Op Diagnosis: Same Anesthesia Technique: General ET Tube (ASA II) Primary Surgeon: Jose Francisco Lea Fluid Replacement, Intraop: 1,500 Output, Urine Amount: 75 EBL in mLs: 25 Condition: Good Free Text/Narrative:: DICTATION [id number] CPT CODE 25421
[2019-07-16] MEDS ORDERED: Lactated Ringers 1,000 ML IV SCH (14:15)
[2019-07-16] MEDS ORDERED: HYDROmorphone 2 MG/ML Syringe ONE (14:16)
[2019-07-16] MEDS ORDERED: fentaNYL 100 MCG/2 ML SDV IVPUSH PRN (14:17)
[2019-07-16] MEDS ORDERED: HYDROmorphone 2 MG/ML Syringe IVPUSH PRN (14:18)
--- NOTE | 2019-07-16 14:38 | PCM.POSTAN ---
POST ANESTHESIA ASSESSMENT - MENTAL STATUS Mental Status: Alert, Oriented - VITAL SIGNS Vital Signs: Last Vital Signs Temp 37.8 C 07/16/19 14:05 Pulse 87 07/16/19 14:35 Resp 13 07/16/19 14:35 BP 114/59 L 07/16/19 14:35 Pulse Ox 96 07/16/19 14:35 - RESPIRATORY Respiratory Status: Respiratory Rate WNL, Airway Patent, O2 Saturation Stable - CARDIOVASCULAR CV Status: Pulse Rate WNL, Blood Pressure Stable - GASTROINTESTINAL GI Status: No Symptoms - PAIN Pain Score: 3 - POST OP HYDRATION Hydration Status: Adequate & Stable - OBSERVATIONS Free Text/Narrative:: No anesthesia problems
--- NOTE | 2019-07-16 15:12 | OR ---
SURGEON: Jose Francisco Lea M.D. DATE OF PROCEDURE: 07/16/2019 OPERATION PERFORMED: Laparoscopic cholecystectomy. PRIMARY SURGEON: Jose Francisco Lea MD ANESTHESIA: General endotracheal. ASA CLASSIFICATION: II. PREOPERATIVE DIAGNOSIS: Symptomatic cholelithiasis with recent biliary colic and acute cholecystitis. POSTOPERATIVE DIAGNOSIS: Symptomatic cholelithiasis with recent biliary colic and acute cholecystitis. ESTIMATED BLOOD LOSS: 25 mL. INTRAOPERATIVE FLUID REPLACEMENT: 1500 mL of crystalloid. INTRAOPERATIVE URINE OUTPUT: 75 mL. DESCRIPTION OF PROCEDURE: The patient was taken to the operating room and placed on the operating table in the supine position. Time-out was called for appropriate identification of the patient and procedure. Thigh-high TEDs and sequential compression boots were placed. Following satisfactory attainment of general endotracheal anesthesia, a Howard catheter was placed in the patient's urinary bladder. The abdomen was prepped with DuraPrep solution. Sterile drapes were applied. The skin just below the umbilicus was infiltrated with 0.5% Marcaine solution. Skin incision was made and deepened through the subcutaneous tissue obtaining hemostasis with the use of electrocautery. Veress needle was introduced into the peritoneal cavity. Saline drop test was positive. Carbon dioxide pneumoperitoneum was established with the release set at 13 cm of water. Once a satisfactory pneumoperitoneum was established, 5 mm camera and port were placed through the infraumbilical incision. The patient was positioned with his feet down and rolled to the left. Under camera vision, 12 mm subxiphoid, 5 mm midclavicular, and 5 mm anterior axillary ports were placed. Each incision was preemptively infiltrated with 0.5% Marcaine solution. With all ports in place, the gallbladder was grasped, adhesions were taken down. It was necessary to place an orogastric tube to decompress the stomach. The cholecystohepatic triangle was dissected free identifying good critical view for both the cystic artery and cystic duct. Cystic artery was identified first and serially hemoclipped and divided with the laparoscopic Metzenbaum scissors. The cystic duct was carefully dissected free and confirmed again with a good critical view that there were no other structures in the area. This structure was also serially hemoclipped and divided with the laparoscopic Metzenbaum scissors. The gallbladder was then dissected away from its bed using electrocautery. The gallbladder was not entered and no bile or stones were spilled. Once the gallbladder was amputated, this was placed in an Endo Catch and left in situ. The bed of the gallbladder was inspected for hemostasis. No significant oozing was noted and there was no obvious bile leak. Surgicel was placed into the bed of the gallbladder after the right upper quadrant had been irrigated with sterile saline solution. With the Surgicel in place, the right hemidiaphragm was irrigated with 250 mL of saline containing 20 mL of 0.5% Marcaine solution. That fluid was left in place. The Endo Catch containing gallbladder was removed through the subxiphoid incision, although this did not have to be extended to remove the gallbladder. Again, under camera vision, the 5 mm ports were removed and finally the infraumbilical camera and port were removed. Wounds were inspected for hemostasis and small bleeding sites were electrocoagulated. The subxiphoid fascia was repaired with interrupted 0 Vicryl. The subxiphoid and infraumbilical incisions were closed in 2 layers approximating the subcutaneous tissue with 3-0 Vicryl and the skin with subcuticular 4-0 Monocryl. The anterior axillary and midclavicular incisions were closed with subcuticular 4-0 Monocryl. All incisions were Steri-Stripped and dressed with sterile Tegaderm pads. Sponge, needle, and instrument counts were all correct. The Howard catheter was removed. Following emergence from anesthesia and extubation, the patient was extubated and taken to recovery room in stable condition. THERESE / PRIETO /[id number]
--- NOTE | 2019-07-16 17:13 | PCM48HPAN ---
Post Anesthesia Note - EVALUATION WITHIN 48HRS OF ANESTHETIC Vital Signs in Normal Range: Yes Patient Participated in Evaluation: Yes Respiratory Function Stable: Yes Airway Patent: Yes Cardiovascular Function Stable: Yes Hydration Status Stable: Yes Pain Control Satisfactory: Yes Nausea and Vomiting Control Satisfactory: Yes Mental Status Recovered: Yes Vital Signs: Last Vital Signs Temp 36.8 C 07/16/19 14:40 Pulse 69 07/16/19 15:50 Resp 15 07/16/19 15:50 BP 105/55 L 07/16/19 15:50 Pulse Ox 95 07/16/19 15:50
== END 2019-07-16 17:20 | disposition home or self-care (01) ==
LOC: MW.SDS 09:19
PROVIDERS: ATTEND Surgery
DX: K80.12 Calculus of gallbladder with acute and chronic cholecystitis without obstruction (principal); I10 Essential (primary) hypertension; E78.5 Hyperlipidemia, unspecified; F17.200 Nicotine dependence, unspecified, uncomplicated; I25.810 Atherosclerosis of coronary artery bypass graft(s) without angina pectoris; Z79.82 Long term (current) use of aspirin; Z79.899 Other long term (current) drug therapy
CPT/HCPCS: 47562; 88304; A9270; J1170; J1885; J2001; J2250; J2405; J2704; J3010; J3490; J7120; 00790; J0690

== ENCOUNTER 2021-01-31 22:11 | Emergency (ER) | payer BC ==
[2021-02-01 00:11] LABS: CARBON DIOXIDE,CO2 30.7 mmol/L (21.0-32.0); POTASSIUM,K 4.9 mmol/L (3.5-5.1)
[2021-02-01] MEDS ORDERED: Morphine 4 MG/ML Syringe IVPUSH ONE (00:50)
[2021-02-01] MEDS ORDERED: HYDROmorphone 1 MG/ML Syringe IVPUSH ONE (00:51)
[2021-02-01] MEDS ORDERED: Ondansetron 4 MG/2 ML SDV ONE (01:02)
[2021-02-01] MEDS ORDERED: Ondansetron 4 MG/2 ML SDV IVPUSH ONE (01:03)
[2021-02-01] MEDS ORDERED: Sodium Chloride 0.9% 1,000 ML IV ONE (01:05)
--- NOTE | 2021-02-01 01:29 | PCM.EKG ---
#1 Interpretation EKG Date: 01/31/21 Time: 22:51 Rhythm: NSR Rate (Beats/Min): 83 [place]: Normal P-Wave: Present QRS: Normal ST-T: Normal QT: Normal Comparison: No Change (06/17/19) EKG Interpretation Comments: Sinus Rhythm
[2021-02-01] MEDS ORDERED: Lactated Ringers 1,000 ML IV ONE (03:36)
[2021-02-01] MEDS ORDERED: Cefepime 1 GM in Premix Bag 1 BAG IV ONE (03:37)
[2021-02-01] MEDS ORDERED: VANCOmycin 1.5 GM/300 ML 1.5 GM in Premix Bag 1 BAG IV ONE (03:38)
--- NOTE | 2021-02-01 03:41 | CT ---
INDICATION: TECHNIQUE: CT abdomen and pelvis acquired with IV contrast. COMPARISON: None available FINDINGS: Small nodular infiltrates in the medial left lower lobe with hyperlucency and systemic feeding artery from the aorta. 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 There is fatty infiltration of the liver. Post cholecystectomy changes. Pancreas is unremarkable. Nodularity of the left adrenal gland, appears low density and likely adenomas. This was described on previous report. A few hypodense left renal lesions incompletely evaluated on this exam. Also, atrophy of the right kidney is severe with several hypodense lesions. Ureters are unremarkable. Bladder is decompressed. Atherosclerotic calcifications of the aorta low insertion of the left renal vein. Small ascites within the pelvis. Stomach is distended. Appendix measures large but is air-filled suggesting against acute appendicitis. Within the right lower quadrant, there multiple loops of dilated small bowel with mesenteric infiltration/fat stranding, angulation of the small bowel loops, and swirling of the mesentery. Image 101 of series 201 and image 46 of 203. IMPRESSION: Obstructed dilated and distressed appearing small bowel loops within the right lower quadrant with mesenteric congestion and possible swirling of the mesentery. Finding is concerning for closed loop obstruction or mesenteric volvulus. Surgical consultation is recommended. No intra-abdominal free air to suggest perforation at this time. Small ascites within the pelvis. Small nodular infiltrates in the medial left lower lobe with hyperlucency and systemic feeding artery from the aorta. 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 Mostly hypodense lesions of the left greater than right kidneys incompletely evaluated on this exam with questionable isodense left renal lesion, suggest follow-up with renal ultrasound on nonemergent basis to exclude solid mass. Appendix is enlarged but contains air suggested no appendicitis. Fatty infiltration of the liver. Nodularity of the left adrenal gland, likely adenomas. Emergent findings (first impression point) were discussed with the patient provider Dr. Greenfield at 0328 on 02/01/2021 Please note that all CT scans at this facility use dose modulation, iterative reconstruction, and/or weight-based dosing when appropriate to reduce radiation dose to as low as reasonably achievable. Dictated by Urszula Cabral MD @ 02/01/2021 3:39:46 AM (Electronically Signed)
[2021-02-01] MEDS ORDERED: metroNIDAZOLE/Normal Saline 500 MG in Premix Bag 1 BAG IV ONE (04:12)
--- NOTE | 2021-02-01 04:36 | EDM.PDOC ---
ED HPI GENERAL MEDICAL PROBLEM - General Chief Complaint: Abdominal Pain Stated Complaint: STOMACH CRAMPS, VOMITTING Time Seen by Provider: 01/31/21 23:44 - History of Present Illness INITIAL COMMENTS - FREE TEXT/NARRATIVE: CHIEF COMPLAINT(S): Abdominal pain HISTORY OF PRESENT ILLNESS: This is a 66-year-old man with a past medical history of hypertension, GERD, hyperlipidemia who presents to the emergency department the chief complaint of abdominal pain. The patient states that he is currently experiencing 10 out of 10 intermittent sharp pain in the right lower quadrant. He states that he has had nausea and vomiting which is nonbloody and nonbilious. He states that his been going on since this morning. He denies any hematuria, dysuria, melena hematochezia, hematemesis or bilious emesis. He denies any fevers or chills. He states that he just cannot keep his pain under control. He denies any other symptoms. REVIEW OF SYSTEMS: Constitutional: Denies fever, chills. Eyes: Denies eye pain Ears, Nose, Mouth, & Throat: Denies earache Cardiovascular: Denies chest pain Respiratory: Denies shortness of breath Gastrointestinal: Positive for right lower quadrant abdominal pain, nausea, vomiting. Denies diarrhea, medic easier, hematemesis, bilious emesis. Genitourinary: Denies hematuria Skin:Denies a rash MSK: Denies joint pain Neurological: Denies blurred vision Psychiatric: Denies depression PAST MEDICAL HISTORY: As per history of present illness and as reviewed below otherwise noncontributory. SURGICAL HISTORY: As per history of present illness and as reviewed below otherwise noncontributory. SOCIAL HISTORY: As per history of present illness and as reviewed below otherwise noncontributory. FAMILY HISTORY: As per history of present illness and as reviewed below otherwise noncontributory. EXAMINATION OF ORGAN SYSTEMS/BODY AREAS: Constitutional: Blood pressure was 140/55, heart rate 86, respiratory rate 20 with an oxygen saturation 96% on room air. Temperature 35.3 General: Middle-aged man who is appears to be in a moderate amount of pain Psychiatric: Appropriate mood and affect. Eyes: No scleral icterus or conjunctival erythema ENMT: Moist mucous membranes. No pharyngeal erythema Cardiovascular: Regular, rate, and rhythm. No gallops, murmurs, or rubs. Bilateral upper extremity pulses symmetric and intact. No peripheral edema. No JVD. Respiratory: Lungs clear to auscultation bilaterally. No wheezes, rales, or rhonchi. Gastrointestinal: Soft, nondistended, tenderness to palpation in the right lower quadrant, right flank. No rebound or guarding. Negative Lindquist's. Positive McBurney's genitourinary: No suprapubic tenderness no CVA tenderness. Musculoskeletal: Normal range of motion. Skin: No lesions or abrasions. Neurological: Alert, GCS 15 MEDICAL DECISION MAKING AND COURSE IN THE ED WITH INTERPRETATION/REVIEW OF DIAGNOSTIC STUDIES: This is a 65-year-old man with a past medical history of hypertension, hyperlipidemia, GERD who comes to the emergency department with acute onset severe right lower quadrant abdominal pain who is not tachycardic, afebrile, and is normotensive. At this time differential does include appendicitis. We will obtain laboratory analysis including CBC, CMP, urinalysis and a CT abdomen pelvis with IV contrast. We did obtain an EKG which is unremarkable. We will provide the patient with 4 mg of IV morphine for pain relief and 4 mg of IV Zofran. We will provide the patient with 1 L of lactated Ringer's bolus. Laboratory: CBC reveals a leukocytosis of 13.99 with neutrophilic predominance. CMP reveals elevated BUN at 20 and a creatinine of 1.9, hyperglycemia at 169. This appears to be around the patient's baseline. Dhynt-dn-wsky glucose was 165. Urinalysis revealed trace ketones and trace blood otherwise unremarkable. Given the patient's kidney function the patient will have to get a CT abdomen without contrast. We did change his order. The patient continued to have pain at this time therefore I provided the patient with an additional 1 mg of Dilaudid for pain relief. We contacted consulting radiologists as there was a delay in the read of multiple images in the emergency department. Apparently there are multiple traumas at other institutions causing these CTs to be pushed down the line. They said this patient was . I was contacted by radiology and they informed me that the patient has a mesen teric volvulus versus closed-loop obstruction recommended general surgery. Given this finding I will obtain lactic acid, blood cultures and start the patient on cefepime and vancomycin. We will provide the patient with additional 1 L lactated Ringer's bolus. I contacted [facility] in [place] and they do not have any available beds., I then contacted [facility] and [facility] in [place] and they do not have any capability at this time or beds. In addition I contacted [facility] and there was no availability at this time. There was a significant delay in finding a bed for the patient given to the fact that there are no available beds in the state of [place]. I contacted [facility] and spoke with Dr. Quiles and Dr. Hays who accepted the transfer. At this time there are no available ambulances for transfer. Therefore the patient will be flown via fixed wing to [facility]. I did start the patient on Flagyl at this time. Laboratory: Lactic acid was 1.0. The radiological images were viewed by myself along with reading the report from the radiologist. CT abdomen pelvis without contrast reveals obstructed dilated and distressed appearing small bowel loops within the right lower quadrant with mesenteric congestion and possible swirling of the mesentery. Findings are concerning for closed-loop obstruction or mesenteric volvulus. No intra-abdominal free air to suggest perforation. There is a small amount of ascites within the pelvis. DISPOSITION: The patient was transferred to [facility] in serious condition CONDITION: Serious PROCEDURES: None FINAL IMPRESSION(S)/DIAGNOSES: 1. 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 Critical Care Time: 40 minutes Due to a high probability of clinically significant, life threatening deterioration, the patient required my highest level of preparedness to inte rvene emergently and I personally spent this critical care time directly and personally managing the patient. This critical care time included obtaining a history, examining the patient, pulse oximetry; ordering and review of studies; arranging urgent treatment with development of a management plan; evaluation of a patients reponse to treatment; frequent assessment; and discussions with other providers. This critical care time was performed to assess and manage the high probability of imminent, life threatening deterioration that could result in multiorgan failure. It was exclusive of separate billable procedures and treating other patients. Please see MDM section and rest of the note for further information on patient assessment and treatment. Please see MDM section and rest of the note for further information on patient assessment and treatment. Travis Greenfield M.D. Bilateral Abdominal Pain Score (Numeric/FACES): 10 - Related Data Allergies Allergy/AdvReac Type Severity Reaction Status Date / Time No Known Allergies Allergy Verified 07/12/19 10:05 Home Meds: Home Meds Aspirin 81 mg PO DAILY 06/17/19 [History] Metoprolol Succinate 25 mg PO QAM 06/17/19 [History] Omeprazole 40 mg PO DAILY 06/17/19 [History] atorvaSTATin [Lipitor] 40 mg PO DAILY 06/17/19 [History] lisinopriL [Zestril] 10 mg PO BID 06/17/19 [History] amLODIPine [Norvasc] 5 mg PO BEDTIME 07/12/19 [History] Past Medical History HEENT History: Reports: Other (See Below) Other HEENT History: wears glasses, has upper and lower dentures Cardiovascular History: Reports: High Cholesterol, Hypertension, Other (See Below) Other Cardiovascular History: 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 ( says "something in his neck they are watching" ?) Respiratory History: Reports: None Gastrointestinal History: Reports: GERD, Other (See Below) Genitourinary History: Reports: None Musculoskeletal History: Reports: None Neurological History: Reports: None Psychiatric History: Reports: None Endocrine/Metabolic History: Reports: None Hematologic History: Reports: None Immunologic History: Reports: None Oncologic (Cancer) History: Reports: None Dermatologic History: Reports: None - Infectious Disease History Infectious Disease History: Reports: Chicken Pox - Past Surgical History Head Surgeries/Procedures: Reports: None GI Surgical History: Reports: Colonoscopy Male Surgical History: Reports: None Social & Family History - Family History Family Medical History: No Pertinent Family History - Tobacco Use Tobacco Use Status *Q: Current Every Day Tobacco User Years of Tobacco use: 40 Packs/Tins Daily: 0.5 - Caffeine Use Caffeine Use: Reports: Soda - Recreational Drug Use Recreational Drug Use: No ED ROS GENERAL - Review of Systems Review Of Systems: See Below ED EXAM, GI/ABD - Physical Exam Exam: See Below Course - Vital Signs Last Recorded V/S: Last Vital Signs Temp 36.0 C L 01/31/21 23:52 Pulse 93 02/01/21 04:37 Resp 14 02/01/21 04:37 BP 122/65 02/01/21 04:37 Pulse Ox 95 02/01/21 04:37 - Orders/Labs/Meds Orders: Active Orders 24 hr Category Date Time Status CULTURE BLOOD [BC] Stat Lab 02/01/21 03:41 Received CULTURE BLOOD [BC] Stat Lab 02/01/21 04:05 Received Blood Culture x2 Reflex Set [OM.PC] Stat Oth 02/01/21 03:36 Ordered Labs: Laboratory Tests 01/31/21 01/31/21 02/01/21 Range/Units 23:40 23:40 00:05 WBC 13.99 H (4.0-11.0) K/uL RBC 4.35 L (4.50-5.90) M/uL Hgb 13.9 (13.0-17.0) g/dL Hct 39.9 (38.0-50.0) % MCV 91.7 (80.0-98.0) fL MCH 32.0 (27.0-32.0) pg MCHC 34.8 (31.0-37.0) g/dL RDW Std Deviation 44.8 (28.0-62.0) fl RDW Coeff of Annie 14 (11.0-15.0) % Plt Count 261 (150-400) K/uL MPV 9.90 (7.40-12.00) fL Neut % (Auto) 91.9 H (48.0-80.0) % Lymph % (Auto) 6.6 L (16.0-40.0) % [place] % (Auto) 1.4 (0.0-15.0) % Eos % (Auto) 0.0 (0.0-7.0) % Baso % (Auto) 0.1 (0.0-1.5) % Neut # (Auto) 12.9 H (1.4-5.7) K/uL Lymph # (Auto) 0.9 (0.6-2.4) K/uL [place] # (Auto) 0.2 (0.0-0.8) K/uL Eos # (Auto) 0.0 (0.0-0.7) K/uL Baso # (Auto) 0.0 (0.0-0.1) K/uL Nucleated RBC % 0.0 /100WBC Nucleated RBCs # 0 K/uL Sodium 138 (136-148) mmol/L Potassium 4.9 (3.5-5.1) mmol/L Chloride 99 (98-107) mmol/L Carbon Dioxide 30.7 (21.0-32.0) mmol/L BUN 20 H (7.0-18.0) mg/dL Creatinine 1.9 H (0.8-1.3) mg/dL Est Cr Clr Drug Dosing 38.00 mL/min Estimated GFR (MDRD) 35.9 ml/min Glucose 169 H (74-106) mg/dL POC Glucose 165 H (70-99) mg/dL Lactic Acid (0.4-2.0) mmol/L Calcium 9.6 (8.5-10.1) mg/dL Total Bilirubin 0.6 (0.2-1.0) mg/dL AST 23 (15-37) IU/L ALT 22 (14-63) IU/L Alkaline Phosphatase 97 (46-116) U/L Total Protein 7.6 (6.4-8.2) g/dL Albumin 3.9 (3.4-5.0) g/dL Globulin 3.7 (2.6-4.0) g/dL Albumin/Globulin Ratio 1.1 (0.9-1.6) Lipase 99 (73-393) U/L Urine Color Urine Appearance Urine pH (5.0-8.0) Ur Specific [place] (1.001-1.035) Urine Protein (NEGATIVE) mg/dL Urine Glucose (UA) (NEGATIVE) mg/dL Urine Ketones (NEGATIVE) mg/dL Urine Occult Blood (NEGATIVE) Urine Nitrite (NEGATIVE) Urine Bilirubin (NEGATIVE) Urine Urobilinogen (<2.0) EU/dL Ur Leukocyte Esterase (NEGATIVE) Urine RBC (0-2/HPF) Urine WBC (0-5/HPF) Ur Epithelial Cells (NONE-FEW) Urine Bacteria (NEGATIVE) Urine Mucus (NONE-MOD) SARS-CoV-2 RNA (GISELE) (NEGATIVE) 02/01/21 02/01/21 02/01/21 Range/Units 01:58 03:41 04:00 WBC (4.0-11.0) K/uL RBC (4.50-5.90) M/uL Hgb (13.0-17.0) g/dL Hct (38.0-50.0) % MCV (80.0-98.0) fL MCH (27.0-32.0) pg MCHC (31.0-37.0) g/dL RDW Std Deviation (28.0-62.0) fl RDW Coeff of Annie (11.0-15.0) % Plt Count (150-400) K/uL MPV (7.40-12.00) fL Neut % (Auto) (48.0-80.0) % Lymph % (Auto) (16.0-40.0) % [place] % (Auto) (0.0-15.0) % Eos % (Auto) (0.0-7.0) % Baso % (Auto) (0.0-1.5) % Neut # (Auto) (1.4-5.7) K/uL Lymph # (Auto) (0.6-2.4) K/uL [place] # (Auto) (0.0-0.8) K/uL Eos # (Auto) (0.0-0.7) K/uL Baso # (Auto) (0.0-0.1) K/uL Nucleated RBC % /100WBC Nucleated RBCs # K/uL Sodium (136-148) mmol/L Potassium (3.5-5.1) mmol/L Chloride (98-107) mmol/L Carbon Dioxide (21.0-32.0) mmol/L BUN (7.0-18.0) mg/dL Creatinine (0.8-1.3) mg/dL Est Cr Clr Drug Dosing mL/min Estimated GFR (MDRD) ml/min Glucose (74-106) mg/dL POC Glucose (70-99) mg/dL Lactic Acid 1.0 (0.4-2.0) mmol/L Calcium (8.5-10.1) mg/dL Total Bilirubin (0.2-1.0) mg/dL AST (15-37) IU/L ALT (14-63) IU/L Alkaline Phosphatase (46-116) U/L Total Protein (6.4-8.2) g/dL Albumin (3.4-5.0) g/dL Globulin (2.6-4.0) g/dL Albumin/Globulin Ratio (0.9-1.6) Lipase (73-393) U/L Urine Color YELLOW Urine Appearance CLEAR Urine pH 5.5 (5.0-8.0) Ur Specific [place] >= 1.030 (1.001-1.035) Urine Protein NEGATIVE (NEGATIVE) mg/dL Urine Glucose (UA) NEGATIVE (NEGATIVE) mg/dL Urine Ketones TRACE H (NEGATIVE) mg/dL Urine Occult Blood TRACE-INTACT H (NEGATIVE) Urine Nitrite NEGATIVE (NEGATIVE) Urine Bilirubin NEGATIVE (NEGATIVE) Urine Urobilinogen 0.2 (<2.0) EU/dL Ur Leukocyte Esterase NEGATIVE (NEGATIVE) Urine RBC 0-2 (0-2/HPF) Urine WBC 0-1 (0-5/HPF) Ur Epithelial Cells FEW (NONE-FEW) Urine Bacteria RARE (NEGATIVE) Urine Mucus LIGHT (NONE-MOD) SARS-CoV-2 RNA (GISELE) NEGATIVE (NEGATIVE) Meds: Medications Discontinued Medications Generic Name Dose Route Start Last Admin Trade Name Freq PRN Reason Stop Dose Admin Hydromorphone HCl 1 mg 02/01/21 00:51 02/01/21 00:56 Hydromorphone 1 Mg/Ml Syringe IVPUSH 02/01/21 00:52 1 mg ONETIME ONE Administration Sodium Chloride 1,000 mls @ 999 mls/hr 02/01/21 01:05 02/01/21 01:06 Normal Saline IV 02/01/21 02:05 999 mls/hr .BOLUS ONE Administration Lactated Ringer's 1,000 mls @ 999 mls/hr 02/01/21 03:36 02/01/21 03:45 Ringers, Lactated IV 02/01/21 04:36 999 mls/hr .BOLUS ONE Administration Cefepime HCl 1 gm/ Premix 50 mls @ 100 mls/hr 02/01/21 03:37 02/01/21 03:49 IV 02/01/21 04:06 100 mls/hr ONETIME ONE Administration Vancomycin HCl 1.5 gm/ Premix 300 mls @ 200 mls/hr 02/01/21 03:38 02/01/21 04:33 IV 02/01/21 05:07 200 mls/hr ONETIME ONE Administration Metronidazole 500 mg/ Premix 100 mls @ 100 mls/hr 02/01/21 04:12 02/01/21 04:44 IV 02/01/21 05:11 100 mls/hr ONETIME ONE Administration Morphine Sulfate 4 mg 10/03/21 00:50 Morphine 4 Mg/Ml Syringe IVPUSH 02/01/21 00:51 ONETIME ONE Ondansetron HCl 4 mg 02/01/21 01:03 02/01/21 01:06 Ondansetron 4 Mg/2 Ml Sdv IVPUSH 02/01/21 01:04 4 mg ONETIME ONE Administration Ondansetron HCl Confirm 02/01/21 01:02 02/01/21 01:07 Ondansetron 4 Mg/2 Ml Sdv Administered 02/01/21 01:03 Not Given Dose 4 mg .ROUTE .STK-MED ONE Departure - Departure Time of Disposition: 05:05 Disposition: DC/Tfer to Acute Hospital 02 Condition: Serious Clinical Impression: Volvulus - Discharge Information Referrals: Abner Martin MD [Primary Care Provider] - Forms: ED Department Discharge Sepsis Event Note (ED) - Focused Exam Vital Signs: Vital Signs Temp Pulse Resp BP Pulse Ox 02/01/21 04:37 93 14 122/65 95 02/01/21 03:46 75 14 120/45 L 96 02/01/21 02:02 93 18 133/64 95 01/31/21 23:52 36.0 C L 79 18 155/70 H 98 01/31/21 23:19 35.3 C L 86 20 140/55 L 96 - My Orders Last 24 Hours: My Active Orders 02/01/21 03:36 Blood Culture x2 Reflex Set [OM.PC] Stat 02/01/21 03:41 CULTURE BLOOD [BC] Stat 02/01/21 04:05 CULTURE BLOOD [BC] Stat - Assessment/Plan Last 24 Hours: My Active Orders 02/01/21 03:36 Blood Culture x2 Reflex Set [OM.PC] Stat 02/01/21 03:41 CULTURE BLOOD [BC] Stat 02/01/21 04:05 CULTURE BLOOD [BC] Stat
== END 2021-02-01 05:05 ==
LOC: MW.ED 22:11
DX: K56.2 Volvulus (principal); I10 Essential (primary) hypertension; K21.9 Gastro-esophageal reflux disease without esophagitis; E78.00 Pure hypercholesterolemia, unspecified; E78.5 Hyperlipidemia, unspecified; Z79.82 Long term (current) use of aspirin; Z79.899 Other long term (current) drug therapy; Z72.0 Tobacco use; Z20.822 Contact with and (suspected) exposure to COVID-19
CPT/HCPCS: 36415; 74176; 80053; 81001; 82947; 83605; 83690; 85025; 87040; 87635; 93005; 96365; 96367; 96368; 96375; 99285; J0692; J1170; J2405; J3370; J3490; J7030; J7120; U0002